=== PATIENT | male | born 1995 | race Caucasian/White ===

== ENCOUNTER 2020-09-12 13:40 | Emergency (ER) | payer SELFPAY ==
[2020-09-12 14:26] VITALS: BP 106/70; PULSE 81; TEMP 98.3; BMI 23.7
[2020-09-12] MEDS ORDERED: DEXAMETHASONE SOD PHOSPHATE 10 MG/1 ML VIAL ONE (15:08)
[2020-09-12] MEDS ORDERED: DEXAMETHASONE LIQUID 0.5 MG/5 ML PO ONE (15:09)
== END 2020-09-12 15:57 | disposition home or self-care (01) ==
LOC: JER 13:40
DX: U07.1 COVID-19 (principal); R05 Cough; R50.9 Fever, unspecified
CPT/HCPCS: 71046-TC-FY; 99284-25; C9803; U0003; U0005